=== PATIENT | female | born 1995 | race Hispanic/Latino ===

== ENCOUNTER 2020-07-01 13:39 | Emergency (ER) | payer BC ==
[~2020-07-01] VITALS: Ht 165.1 cm; Wt 115.7 kg
[2020-07-01] MEDS ORDERED: TRAZODONE HCL50 MG PO (14:02)
[2020-07-01] MEDS ORDERED: NITROFURANTOIN100 M1 PO (14:02)
[2020-07-01] MEDS ORDERED: ESCITALOPRAM OX20 MG PO (14:02)
[2020-07-01] MEDS ORDERED: PREDNISONE20 MG PO (17:16)
== END 2020-07-01 17:30 | disposition home or self-care (01) ==
LOC: ED 13:39
DX: T80.62XA Other serum reaction due to vaccination, initial encounter (principal); R06.00 Dyspnea, unspecified; L23.89 Allergic contact dermatitis due to other agents; T50.B95A Adverse effect of other viral vaccines, initial encounter
CPT/HCPCS: 81001; 99284; J7512